=== PATIENT | female | born 1995 | race Caucasian/White ===

== ENCOUNTER → 2016-08-03 | Day surgery (SDC) | payer OTHER ==
--- NOTE | 2016-08-03 09:59 | Operative Report ---
Operative/Inv Procedure Report Surgery Date: 08/03/16 Name of Procedure: Left ACL reconstruction using hamstring autograft, partial medial meniscectomy Pre-Operative Diagnosis: Left ACL tear with a bucket-handle medial meniscus tear Post-Operative Diagnosis: Left ACL tear with a bucket handle medial meniscus tear Estimated Blood Loss: scant Surgeon/Surgical Instrument Maker: MARK LEAHY,SANJAY Roman Anesthesia: general endotracheal tube, block Drains: Hemovac Complications: None Condition: Stable to PACU Operative Indication: This is a 21-year-old female who injured her left knee playing soccer. She has a history of a knee arthroscopy and debridement after a low-grade partial ACL tear. She had recovered well from that however injured her knee in the subsequent soccer season. MRI showed a bucket-handle tear of medial meniscus and a complete ACL tear. Risks and benefits of the procedure were discussed with the patient at length. Risks include but are not limited to nerve damage, muscle damage, infection, blood loss, blood clots, pulmonary embolus, and even . The patient agreed to the above risks and elected to proceed with surgery. Operative/Procedure Note Note: The patient was placed supine on the operating room table. A tourniquet was applied. The lower extremity prepped and draped in normal sterile fashion. A timeout was performed before the incision. The site marking was visualized before incision. After the leg was prepped and draped, an Esmarch was used to exsanguinate the extremity. The tourniquet was inflated. An incision was made medial and distal to the tibial tubercle. Soft tissue dissection was performed down to the sartorius fascia. The sartorius fascia was incised in line with the gracilis and semi-tendinosis tendons. The gracilis tendon was isolated and a vessel loop was placed deep to this. Adhesions were released with a scissor. A tendon stripper was then passed up and the gracilis was delivered from the wound. It was then amputated at its insertion point. The semi-tendinosis tendon was also removed in similar fashion. The hamstring tendons were then sized and prepared on the back table. Muscular tissue was debrided with a metal ruler. Fiber wire suture was then whipstitched at the end of the tendons. It was placed on the tensioner at 10 pounds of tension and a moist Ray-Agnie was then placed over the tendons to keep it from drying out. A standard inferolateral portal was established with an 11 blade. The camera was inserted. A medial portal was established with a spinal needle and an 11 blade. The diagnostic arthroscopy was then performed which showed the above findings. The medial meniscus was reduced however it was noted to be quite friable. The tear was in the red white zone and there did not appear to be sufficient tissue for meniscus repair. As such the bucket-handle component was debrided. A combination of a straight biter as well as a shaver was used to debride the meniscus back to a stable rim of cartilage. There was approximately 50% of the meniscus remaining. A shaver was then used to debride the ACL stump. A bur was then used to perform a notchplasty for visualization purposes. Next the bur was used to carey the placement of the femoral tunnel in its anatomic position on the lateral femoral wall. A drill guide was then used and the wire was then placed through the anatomic footprint of the ACL on the tibia. This was then overreamed with a 9.5 reamer. A shaver was then used to clear out the soft tissue from the tibial tunnel aperture. Through the medial portal a #9.5 acorn reamer was used to drill the femoral tunnel to 26 mm. An Endobutton reamer was then drilled through. The Beath pin was then drilled from the medial portal through the lateral aspect of the femur and a #2 ortho cord suture was then shuttled for graft passage. The suture was then grasped through the tibial tunnel and the suture was used to shuttle the graft and the ultra button up into the femoral tunnel. The extendo button was flipped. An x-ray was taken to ensure that the Endobutton was flush to the femoral cortex. The knee was cycled several times and the knee was taken down to full extension. There was no graft impingement noted. A 9.5x25 regenesorb crew was then inserted while traction was pulled distally and a posterior drawer maneuver was applied. Excellent fixation was noted and the neto exam was noted to be stable. The excess tendon and sutures were cut. The knee was then copiously irrigated. A 1/8 inch Hemovac drain was placed through the lateral portal. The sartorius fascia was closed with 0 Vicryl suture. The skin was closed with 2-0 Vicryl suture and a running subcuticular 3 -0 Prolene stitch. A dry sterile dressing was applied. A brace was applied. The patient was awoken from anesthesia and transferred to PACU in stable condition. Findings: Complete ACL tear. PCL intact. Lateral compartment trigger cartilage and meniscus intact. Patellofemoral joint articular cartilage intact. Medial compartment articular cartilage with grade 1 chondral changes. Displaced bucket -handle tear of medial meniscus involving the red white zone with insufficient tissue for repair. No loose bodies noted.
== END ==
LOC: STS 01:48
DX: S83.512A Sprain of anterior cruciate ligament of left knee, initial encounter (principal); S83.212A Bucket-handle tear of medial meniscus, current injury, left knee, initial encounter; Y93.66 Activity, soccer
CPT/HCPCS: 81025; J0131; J0690; J2250; J2795